=== PATIENT | male | born 1980 | race Caucasian/White ===

== ENCOUNTER 2019-05-23 15:45 | Emergency (ER) | payer OTHER, SELFPAY ==
[2019-05-23 15:57] VITALS: BP 140/90; PULSE 71; RESP 20; TEMP 37.1; O2SAT 98
--- NOTE | 2019-05-23 16:38 | ED.GENADULT ---
HPI - General Adult General Chief complaint: Unspecified Stated complaint: neck pain Time Seen by Provider: 05/23/19 16:13 Source: patient and RN notes reviewed Mode of arrival: ambulatory Limitations: no limitations History of Present Illness HPI narrative: 39-year-old male presents with complaints of rectum rash and itching for greater than 3 weeks. Mustapha believes he has Anal Streptococcus. Hydrocortisone cream and increase in showers without relief. Denies new changes in personal hygiene products or laundry detergent. No new foods or medications. No swelling, burning, bleeding, or drainage. Mustapha is concerned since his nephews in which he was around has been diagnosis with anal Strep, one of them twice. History of Impetigo and Streptococcus of throat per Mustapha. Denies fever, chills, headaches, weakness, fatigue, myalgia, facial swelling, or tongue swelling. Denies chest pain or dyspnea. Tolerating po intake well. Complaints of right lateral neck pain and throat for 14 days. No treatment. No injury. No headache or numbness or weakness in the arms/upper extremities. Denies numbness or tingling. Denies pain with movement of shoulder. Denies radiating pain. No loss of mobility. No swelling. Relieving factor is rest. Remains active. Some parts of this dictation were generated by voice recognition software and may contain typographical and/or grammatical inaccuracies. Related Data Home Medications Medication Instructions Recorded Confirmed albuterol sulfate [Proventil HFA] 1 puff INHALATION QID PRN 05/23/19 05/23/19 fluticasone furoate-vilanterol 1 inh INHALATION DAILY 05/23/19 05/23/19 [Breo Ellipta] levocetirizine [Xyzal] 5 mg PO DAILY PRN 05/23/19 05/23/19 Allergies Allergy/AdvReac Type Severity Reaction Status Date / Time No Known Allergies Allergy Verified 05/23/19 16:02 Review of Systems Review of Systems: Narrative: CONSTITUTIONAL: Denies fever, chills, sweats. EYES: Denies visual changes, redness, discharge. ENT: Denies rhinorrhea, congestion, otalgia. Complains of sore throat. CARDIOVASCULAR: Denies chest pain, palpitations, edema. RESPIRATORY: Denies dyspnea, wheezing, cough. GASTROINTESTINAL: Denies abdominal pain, nausea, vomiting. Rectum rash with itching. GENITOURINARY: Denies dysuria, hematuria, abnormal discharge. SKIN: Denies rash or itching. MUSCULOSKELETAL: Denies acute back pain or myalgia. Complains of RT lateral neck pain. NEUROLOGIC: Denies numbness or focal weakness. PSYCHIATRIC: Denies anxiety or depression. All other systems reviewed are negative, except as documented in HPI and below. [facility] Past Medical History Medical History (Updated 05/27/19 @ 03:22 by OSMAN Cornell) Asthma History of strep sore throat Impetigo Surgical History Surgical History (Updated 05/27/19 @ 02:41 by OSMAN Cornell) History of inguinal hernia repair Social History Social History Smoking status: Former smoker Smoking end date: 04/25/02 Alcohol intake: current Comments At time of signature, agree with nurse past medical, surgical, social, and family history. There is no relevant family history pertinent to the presenting complaint. Exam Narrative: Exam Narrative: GENERAL: This is a well-nourished, well-developed patient, in no apparent distress. Talks in full sentences and ambulates with steady gait without dyspnea. HEAD: normocephalic, atraumatic. EYES: PERRL. Sclera clear/white. Vision is grossly intact. EARS: External ears normal, auditory canals clear and without drainage, TMs normal without perforation. Hearing grossly intact. NOSE: External nose normal with no obvious nasal discharge, nares without redness, no rhinorrhea. THROAT: Mucous membranes moist, posterior pharynx with PND, no erythema, no exudate, and normal tonsils. No drainage, no concern for Peritonsillar abscess. No drooling
--- NOTE | 2019-05-23 17:01 | PC.NURSE ---
1645 patient has a fungal rash around the rectum, also small fissure noted.
== END 2019-05-23 16:57 | disposition home or self-care (01) ==
PROVIDERS: Emergency Provider Nurse Practitioner Family; PCP Family Medicine
DX: B35.6 Tinea cruris (principal); M54.2 Cervicalgia; Z87.891 Personal history of nicotine dependence; J45.909 Unspecified asthma, uncomplicated
CPT/HCPCS: 99213; G0463

== ENCOUNTER 2020-04-20 04:24 | Emergency (ER) | payer OTHER, SELFPAY ==
[2020-04-20] VITALS (10 sets, daily range): BP systolic 115–121; BP diastolic 79–84; PULSE 64–93; RESP 18–20; TEMP 36.2; O2SAT 97–100
[2020-04-20] MEDS: methylPREDNISolone SOD SUCC 125 MG VIAL IV PUSH (05:21)
[2020-04-20] MEDS: FAMOTIDINE 20 MG/2 ML VIAL IV PUSH (05:21)
[2020-04-20] MEDS: diphenhydrAMINE HCl INJ 50 MG/ML VIAL 25 MG IV PUSH (05:21)
[2020-04-20 05:35] LABS: Basophils Absolute Auto 0.1 K/mm3 (0.0-0.1); Basophils Percent Auto 1.7 % (0.2-1.2); Eosinophils Absolute Auto 0.2 K/mm3 (0-0.3); Eosinophils Percent Auto 4.4 % (0-4.4); Hematocrit 40.1 % (42.0-52.0); Hemoglobin 13.6 g/dL (14.0-18.0); Immature Granulocyte Absolute 0.01 K/mm3 (0.00-0.031); Immature Granulocyte Percent A 0.3 % (0-0.5); Lymphocytes Absolute Auto 1.22 K/mm3 (0.9-3.2); Lymphocytes Percent Auto 35.5 % (18.3-44.2); Mean Corpuscular HGB Conc 33.9 g/dl (32-36); Mean Corpuscular Hemoglobin 31.9 pg (26-34); Mean Corpuscular Volume 94.1 fl (80-100); Mean Platelet Volume 9.4 fl (7.4-10.4); Monocytes Absolute Auto 0.3 K/mm3 (0.1-0.6); Monocytes Percent Auto 8.7 % (2.6-8.5); Neutrophils Absolute Auto 1.7 K/mm3 (1.3-6.7); Neutrophils Percent Auto 49.4 % (45.5-73.1); Platelet Count Result 247 k/mm3 (150-375); Red Blood Count 4.26 M/mm3 (4.6-6.20); Red Cell Distribution Width 12.3 % (11.5-14.5); White Blood Count 3.4 K/mm3 (4.5-10.0)
[2020-04-20 05:52] LABS: Anion Gap 10 mmol/L (8-16); Blood Urea Nitrogen 10 mg/dL (9-20); Calcium 9.5 mg/dL (8.4-10.2); Carbon Dioxide 27 mmol/L (22-30); Chloride 108 mmol/L (98-107); Estimated CRCL calculation 123 ml/min; Estimated Glomerular Filt Rate > 60; Glucose 84 mg/dL (75-110); Sodium 145 mmol/L (137-145)
--- NOTE | 2020-04-20 06:53 | ED.EYEPROB ---
HPI - Eye Problem General Chief complaint: Eye Problems Stated complaint: Eye swelling, itching Time Seen by Provider: 04/20/20 04:35 Source: RN notes reviewed History of Present Illness HPI Narrative: Patient presents emergency department from home for eyelid swelling. Patient states for the past 3 days he has had swelling of the bilateral upper eyelids. States is been associated with itching he denies any injury or wounds he denies applying any medication to the area he states he has had issues with his eyelid swelling intermittently over the past 1 year he denies any eye pain and denies any vision changes denies having fevers or chills denies having signs of the lips or tongue or any hives Related Data Home Medications Medication Instructions Recorded Confirmed levocetirizine [Xyzal] 5 mg PO DAILY PRN 05/23/19 05/23/19 Allergies Allergy/AdvReac Type Severity Reaction Status Date / Time No Known Allergies Allergy Verified 04/20/20 04:30 Review of Systems Review of Systems: Narrative: Gen.: Denies fevers or chills Eyes: See HPI ENT: Denies congestion Respiratory: Denies shortness of breath or cough CV: Denies chest pain or palpitations GI: Denies abdominal pain nausea, emesis Musculoskeletal: Denies back pain or muscle pain Neuro: Denies numbness, tingling, weakness or focal weakness Skin: Denies rash Except as documented, all other systems reviewed and negative [facility] Past Medical History Medical History Asthma History of strep sore throat Impetigo Surgical History Surgical History (Updated 05/27/19 @ 02:41 by OSMAN Cornell) History of inguinal hernia repair Social History Social History Smoking status: Former smoker Smoking end date: 04/25/02 Alcohol intake: current Exam Narrative: Exam Narrative: APPEARANCE: No acute distress, nontoxic, resting in bed EYES: EOMI, PERRL, no conjunctival erythema, the bilateral upper eyelids are swollen and mildly erythematous no crusting lesions of the eyelid no pain with full movement of the bilateral eyes no swelling of the lower eyelids bilaterally HEENT: Normocephalic, atraumatic, OMM, no sign of the lips or tongue RESPIRATORY: No respiratory distress Clear to auscultation bilaterally with no rhonchi wheezing or rales. CARDIOVASCULAR: Regular rate and rhythm without murmurs rubs or gallops. ABDOMINAL: Soft, nontender, nondistended, no rebound or guarding MUSCULOSKELETAl: Moves all extremities. NEURO: Awake and alert. Following commands, speech normal, no focal deficits SKIN:: Warm, dry. No rashes lesions or abrasions PSYCHIATRIC: Normal affect/mood, Course Course Emergency Course: Patient swelling has improved following medications Discussed with patient results of workup and diagnosis. Discussed need for follow-up with primary care, proper use of medication, and reasons to return to the emergency department. Patient understands and agrees to current treatment plan discussed with patient the use of medications for allergic reaction and a prescription will be sent with Bactrim for the patient to start in 2 days if his swelling has not improved Vital Signs Vital signs: Vital Signs Temperature 97.2 F L 04/20/20 04:26 Pulse Rate 93 04/20/20 04:26 Respiratory Rate 18 04/20/20 04:26 Blood Pressure 121/84 04/20/20 04:26 Pulse Oximetry 100 04/20/20 04:26 Temperature 97.2 F L 04/20/20 04:26 Pulse Rate 64 04/20/20 07:00 Respiratory Rate 20 04/20/20 07:00 Blood Pressure 116/84 04/20/20 07:00 Pulse Oximetry 97 04/20/20 07:00 MDM - Eye Problem MDM Narrative Medical decision making narrative: Patient presented for side bilateral eyelids for the past 3 days. States has had intermittent issues over the past year no eye pain no conjunctival erythema suspect that this is allergic reaction other concern would be
== END 2020-04-20 07:20 | disposition home or self-care (01) ==
PROVIDERS: Emergency Provider Emergency Medicine; PCP Family Medicine
DX: T78.40XA Allergy, unspecified, initial encounter (principal); J45.909 Unspecified asthma, uncomplicated; Z87.891 Personal history of nicotine dependence
CPT/HCPCS: 36415; 80048; 85025; 96374; 96375; 99284; J1200; J2930